=== PATIENT | male | born 2000 | race Caucasian/White ===

== ENCOUNTER 2019-12-27 11:58 | Outpatient (CLI) | payer BC, SELFPAY ==
[2019-12-30 12:17] LABS: SARS-CoV-2 RNA Undetected (Undetected); SARS-CoV-2 Specimen Source Nasopharynx
== END 2019-12-27 12:18 ==
PROVIDERS: PCP Pediatrics; Visit Provider Pediatrics
DX: Z11.59 Encounter for screening for other viral diseases (principal)
CPT/HCPCS: U0003

== ENCOUNTER → 2022-03-10 17:39 | Outpatient (CLI) | payer BC, SELFPAY ==
--- NOTE | 2022-03-10 | DI.RAD_ITS ---
Exam(s) XR TOE LT GREAT EXAM: XR TOE LT GREAT CLINICAL HISTORY: GREAT TOE PAIN-[id number], ? POSSIBLE FX. TECHNIQUE: 2D digital imaging was performed. COMPARISON: No exams were available for comparison FINDINGS: 3 views There is no evidence of acute fracture of the phalanges of the great toe. The great toe meta tarsal is only included on 1 of the three views. It appears unremarkable on this view. There is a tiny submillimeter density seen on the medial aspect of the nail bed, superficially locate d in what appears to be the nail. IMPRESSION: No fracture seen Tiny sub millimeter foreign body which appears in the medial aspect great toenail DATA REPOSITORY: RADIATION DOSE DELIVERED:
== END ==
PROVIDERS: PCP Student in an Organized Health Care Education/Training Program; Visit Provider Physician Assistant Medical
DX: M79.675 Pain in left toe(s) (principal); Z18.89 Other specified retained foreign body fragments
CPT/HCPCS: 73660